=== PATIENT | female | born 1995 | race Caucasian/White ===

== ENCOUNTER 2016-06-17 | Outpatient (CLI) | END 2016-06-17 19:54 | disposition critical access hospital (66) | CPT/HCPCS: A0425; A0429 ==

== ENCOUNTER 2016-06-17 20:17 | Emergency (ER) | payer OTHER ==
[2016-06-18] MEDS ORDERED: ACETAMINOPHEN 500 MG TABLET PO STA (00:35)
[2016-06-18] MEDS ORDERED: ACETAMINOPHEN 500 MG TABLET PO ONE (00:51)
== END 2016-06-18 02:13 | disposition home or self-care (01) ==
DX: T43.222A Poisoning by selective serotonin reuptake inhibitors, intentional self-harm, initial encounter (principal); F32.9 Major depressive disorder, single episode, unspecified; F10.10 Alcohol abuse, uncomplicated; I48.92 Unspecified atrial flutter
CPT/HCPCS: 36415; 80053; 80306; 80307; 80320; 80329; 81001; 81025; 83690; 84443; 85025; 87086; 93005; 93010; 99284; A9270

== ENCOUNTER 2017-01-01 16:50 | Emergency (ER) | payer OTHER ==
[2017-01-01 18:22] VITALS: BP 140/92
== END 2017-01-01 18:19 | disposition left against medical advice (07) ==
LOC: ED 16:50
DX: F44.81 Dissociative identity disorder (principal); F32.9 Major depressive disorder, single episode, unspecified; Z53.21 Procedure and treatment not carried out due to patient leaving prior to being seen by health care provider
CPT/HCPCS: 99281

== ENCOUNTER 2017-01-14 22:50 | Outpatient (CLI) | payer OTHER | END 2017-01-14 22:51 | disposition critical access hospital (66) | LOC: EMS 22:50 | PROVIDERS: ATTEND Surgery | DX: R56.9 Unspecified convulsions (principal); R50.9 Fever, unspecified; E16.2 Hypoglycemia, unspecified | CPT/HCPCS: A0425; A0427 ==

== ENCOUNTER 2017-01-14 23:11 | Observation (INO) | payer OTHER ==
[2017-01-14] MEDS ORDERED: SODIUM CHLORIDE 0.9% 1,000 ML IV ONE (23:21)
[2017-01-14] MEDS ORDERED: DEXTROSE 50% ABBOJECT 25 GM/50 ML SYRINGE IVP STA (23:22)
[2017-01-14] MEDS ORDERED: DEXTROSE 5%-0.9% NACL 1,000 ML IV ONE (23:25)
[2017-01-14] MEDS ORDERED: DEXTROSE 50% ABBOJECT 25 GM/50 ML SYRINGE ONE (23:41)
[2017-01-14] MEDS ORDERED: SODIUM CHLORIDE FLUSH 0.9% 10 ML SYRINGE IVP ONE (23:41)
[2017-01-14 23:44] LABS: BILIRUBIN,URINE NEGATIVE (NEGATIVE)
[2017-01-14 23:45] LABS: BASOPHILS % (AUTO) 0.4 %; EOSINOPHILS % (AUTO) 0.3 %; HCT - HEMATOCRIT 34.1 % (37.0-47.0); HGB - HEMOGLOBIN 11.6 g/dL (12.0-16.0); LYMPHOCYTES # (AUTO) 1.5 10^3/uL (1.5-3.5); LYMPHOCYTES % (AUTO) 23.2 %; MEAN CORPUSCULAR HEMOGLOBIN 29.8 pg (27.0-31.0); MEAN CORPUSCULAR HGB CONC 34.1 g/dL (32.0-36.0); MEAN CORPUSCULAR VOLUME 87.6 fL (81.0-99.0); MEAN PLATELET VOLUME 8.2 fL (7.9-10.8); MONOCYTES # (AUTO) 0.5 10^3/uL (0.0-1.0); NEUTROPHILS # (AUTO) 4.3 10^3/uL (1.5-6.6); NEUTROPHILS % (AUTO) 68.1 %; RED BLOOD COUNT 3.89 10^6/uL (4.20-5.40); RED CELL DISTRIBUTION WIDTH 13.9 % (12.0-15.0); UNCORRECTED WHITE BLOOD COUNT 6.3 x10^3/uL; WHITE BLOOD COUNT 6.3 x10^3/uL (4.8-10.8)
[2017-01-14 23:47] LABS: HCG UR QUAL NEGATIVE; UA CHARGE (STRIP ONLY) YES; UR CULTURE IF IND NOT INDICATED
[2017-01-14 23:57] LABS: ALBUMIN/GLOBULIN RATIO 1.6 (1.0-2.2); BILIRUBIN,TOTAL 0.5 mg/dL (0.2-1.0); BUN - BLOOD UREA NITROGEN 11 mg/dL (6-20); CALCIUM 8.5 mg/dL (8.5-10.3); CARBON DIOXIDE - CO2 24 mmol/L (21-32); CHLORIDE 109 mmol/L (101-111); CREATININE 0.5 mg/dL (0.4-1.0); GFR - MDRD 157 (>89); GLUCOSE 67 mg/dL (70-100); LIPASE 20 U/L (22-51); POTASSIUM 3.6 mmol/L (3.5-5.0); SALICYLATE < 6.0 mg/dL; SODIUM 140 mmol/L (135-145); TOTAL PROTEIN 6.8 g/dL (6.7-8.2)
[2017-01-14 23:58] LABS: ACETAMINOPHEN < 10 ug/mL (10-30)
[2017-01-15] MEDS ORDERED: DEXTROSE 50% ABBOJECT 25 GM/50 ML SYRINGE IVP STA
[2017-01-15] MEDS ORDERED: CYPROHEPTADINE 4 MG TABLET PO STA (00:04)
[2017-01-15] MEDS ORDERED: diazePAM INJ 5 MG/ML SYRINGE IVP STA (00:10)
--- NOTE | 2017-01-15 00:10 | CT Preliminary Report ---
Exam: CT Head W/O IMPRESSION: No acute or focal intracranial abnormality. [facility] SITE ID: [id number]
--- NOTE | 2017-01-15 00:11 | ED Physician Documentation ---
PD HPI ALTERED MENTAL STATUS - Stated complaint Stated Complaint: SZ - Chief complaint Chief Complaint: Neuro - History obtained from History obtained from: Patient, Family (spouse), EMS - History of Present Illness Timing - onset: Today (just COURTESY CLERK, her says she seemed okay when he got home from work about 8 pm. He went to bed and was awakened by patient having rigid muscles and tremoring c/w seizure. No history of seizures. EMS called by and they found patient agitated, nonverbal/noninteractive, with blood sugar 43. Given amp D50 without improvement in mentation after FSBS improved. They noted slight temp elevation 37.9 or so, but was just after seizure.) Timing - duration: Hours (1) Timing - details: Abrupt onset Quality / character: Less responsive, Confused, Agitated Associated symptoms: Seizure activity. No: Fever, Headache, Cough, NVD Contributing factors: Recent med change (seen by psychiatrist a week ago and started on 2 new meds (had been on Prozac without improvement in depression). Stopped the Prozac and started Sertraline daily and Buspar bid. Has been taking them as directed, per .) Basline status: Alert and oriented X 3, Ambulatory Treatment COURTESY CLERK: Accucheck, D50 Similar symptoms before: Has not had sx before Recently seen: Clinic Review of Systems Unable to obtain: AMS, Other (info from , who is bedside and concerned appropriately.) Constitutional: denies: Fever, Chills Cardiac: denies: Chest pain / pressure Respiratory: denies: Cough, Wheezing GI: denies: Vomiting Skin: denies: Rash, Laceration (s) Neurologic: denies: Head injury Endocrine: denies: Weight loss PD PAST MEDICAL HISTORY - Past Medical History Cardiovascular: None Respiratory: None Neuro: None Endocrine/Autoimmune: None Psych: Depression, Anxiety, ADD/ADHD, Eating disorder - Past Surgical History Past Surgical History: Yes HEENT: Tonsil/Adenoidectomy - Present Medications Home Medications: Ambulatory Orders Medication Instructions Recorded Confirmed Sertraline [Zoloft] 50 mg PO DAILY 01/14/17 01/14/17 risperiDONE [RisperDAL] 0.5 mg PO BID 01/14/17 01/14/17 - Allergies Allergies/Adverse Reactions: Allergies Allergy/AdvReac Type Severity Reaction Status Date / Time No Known Drug Allergies Allergy Verified 06/17/16 20:26 - Social History Does the pt smoke?: No Smoking Status: Never smoker Does the pt drink ETOH?: Yes Does the pt have substance abuse?: No - Immunizations Immunizations are current?: Yes PD ED PE NORMAL - Vitals Vital signs reviewed: Yes - General General: Other (opens eyes to verbal/tactile but does not follow commands. Some element of rotary and variable nystagmus both eyes. Pupils slightly dilated but reactive. Fundi normal. She seems anxious, with some purposeful movements of arms and legs but not following direction. ) - HEENT HEENT: Atraumatic, Ears normal, Moist mucous membranes, Pharynx benign - Neck Neck: Supple, no meningeal sign, No adenopathy - Cardiac Cardiac: RRR, No murmur - Respiratory Respiratory: Clear bilaterally - Abdomen Abdomen: Soft, Non distended - Derm Derm: Normal color, Warm and dry - Extremities Extremities: No deformity, Normal ROM s pain, No edema - Neuro Neuro: No motor deficit Results - Vitals Vitals: Vital Signs - 24 hr 01/14/17 01/14/17 01/15/17 23:16 23:44 00:29 Temperature 37.1 C Heart Rate 126 H 123 H 125 H Respiratory 18 20 18 Rate Blood Pressure 145/87 H 145/77 H 137/79 H O2 Saturation 99 98 99 Oxygen O2 Source Room air - Labs Labs: Laboratory Tests 01/14/17 01/14/17 01/14/17 23:27 23:27 23:27 WBC RBC Hgb Hct MCV MCH MCHC RDW Plt Count MPV Neut # Lymph # Jasper # Eos # Baso # Absolute Nucleated RBC Nucleated RBCs Sodium Potassium Chloride Carbon Dioxide Anion Gap BUN Creatinine Estimated GFR (MDRD) Glucose Lactic Acid Calcium Magnesium Total Bilirubin AST ALT Alkaline Phosphatase Total Protein Albumin Globulin Albumin/Globulin Ratio Lipase Urine Color LT. YELLOW Urine Clarity CLEAR Urine pH 6.0 Ur Specific [place] >=1.030 H >=1.030 H Urine Protein NEGATIVE Urine Glucose (UA) 250 H Urine Ketones NEGATIVE Urine Occult Blood NEGATIVE Urine Nitrite NEGATIVE Urine Bilirubin NEGATIVE Urine Urobilinogen 0.2 (NORMAL) Ur Leukocyte Esterase NEGATIVE Ur Microscopic Review NOT INDICATED Urine Culture Comments NOT INDICATED Urine HCG, Qual NEGATIVE Salicylates Urine Opiates Screen POSITIVE H Ur Oxycodone Screen NEGATIVE Urine Methadone Screen NEGATIVE Ur Propoxyphene Screen NEGATIVE Acetaminophen Ur Barbiturates Screen NEGATIVE Ur Tricyclics Screen NEGATIVE Ur Phencyclidine Scrn NEGATIVE Ur Amphetamine Screen NEGATIVE U Methamphetamines Scrn NEGATIVE U Benzodiazepines Scrn NEGATIVE Urine Cocaine Screen NEGATIVE U Cannabinoids Screen NEGATIVE Ethyl Alcohol 01/14/17 01/14/17 01/14/17 23:33 23:33 23:33 WBC 6.3 RBC 3.89 L Hgb 11.6 L Hct 34.1 L MCV 87.6 MCH 29.8 MCHC 34.1 RDW 13.9 Plt Count 187 MPV 8.2 Neut # 4.3 Lymph # 1.5 Jasper # 0.5 Eos # 0.0 Baso # 0.0 Absolute Nucleated RBC 0.00 Nucleated RBCs 0.0 Sodium 140 Potassium 3.6 Chloride 109 Carbon Dioxide 24 Anion Gap 7.0 BUN 11 Creatinine 0.5 Estimated GFR (MDRD) 157 Glucose 67 L Lactic Acid 1.0 Calcium 8.5 Magnesium 2.0 Total Bilirubin 0.5 AST 17 ALT < 10 L Alkaline Phosphatase 53 Total Protein 6.8 Albumin 4.2 Globulin 2.6 Albumin/Globulin Ratio 1.6 Lipase 20 L Urine Color Urine Clarity Urine pH Ur Specific [place] Urine Protein Urine Glucose (UA) Urine Ketones Urine Occult Blood Urine Nitrite Urine Bilirubin Urine Urobilinogen Ur Leukocyte Esterase Ur Microscopic Review Urine Culture Comments Urine HCG, Qual Salicylates < 6.0 Urine Opiates Screen Ur Oxycodone Screen Urine Methadone Screen Ur Propoxyphene Screen Acetaminophen < 10 L Ur Barbiturates Screen Ur Tricyclics Screen Ur Phencyclidine Scrn Ur Amphetamine Screen U Methamphetamines Scrn U Benzodiazepines Scrn Urine Cocaine Screen U Cannabinoids Screen Ethyl Alcohol < 5.0 01/14/17 23:33 WBC RBC Hgb Hct MCV MCH MCHC RDW Plt Count MPV Neut # Lymph # Jasper # Eos # Baso # Absolute Nucleated RBC Nucleated RBCs Sodium Potassium Chloride Carbon Dioxide Anion Gap BUN Creatinine Estimated GFR (MDRD) Glucose Lactic Acid Calcium Magnesium Total Bilirubin AST ALT Alkaline Phosphatase Total Protein Albumin Globulin Albumin/Globulin Ratio Lipase Urine Color Urine Clarity Urine pH Ur Specific [place] Urine Protein Urine Glucose (UA) Urine Ketones Urine Occult Blood Urine Nitrite Urine Bilirubin Urine Urobilinogen Ur Leukocyte Esterase Ur Microscopic Review Urine Culture Comments Urine HCG, Qual Salicylates Urine Opiates Screen Ur Oxycodone Screen Urine Methadone Screen Ur Propoxyphene Screen Acetaminophen Ur Barbiturates Screen Ur Tricyclics Screen Ur Phencyclidine Scrn Ur Amphetamine Screen U Methamphetamines Scrn U Benzodiazepines Scrn Urine Cocaine Screen U Cannabinoids Screen Ethyl Alcohol < 5.0 - Rads (name of study) head CT Radiology: Prelim report reviewed, EMP read contemporaneously (no acute process seen) PD MEDICAL DECISION MAKING - ED course Complexity details: reviewed results, re-evaluated patient, considered differential (Had felt okay earlier in the day without URI/infectious symptoms. No recent injury. No alcohol use today per . Had been taking 2 new meds in the past week Rx by Psychiatrist. Pill count is appropriate in the bottles, so no overdose. Her symptoms and findings are c/w serotonin syndrome/ side effects more to Sertraline (with the seizure and low blood sugar). 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
--- NOTE | 2017-01-15 00:13 | CT Report ---
EXAM: CT HEAD EXAM DATE: 01/15/2017 12:04 AM. CLINICAL HISTORY: Seizure and altered mental status. COMPARISON: None. TECHNIQUE: Multiaxial CT images were obtained from the foramen magnum to the vertex. IV contrast: Non e. Reformats: Coronal. In accordance with CT protocol optimization, one or more of the following dose reduction techniques w ere utilized for this exam: automated exposure control, adjustment of mA and/or KV based on patient s ize, or use of iterative reconstructive technique. FINDINGS: Parenchyma: No intraparenchymal hemorrhage. No evidence of mass, midline shift, or CT findings of inf arction. Wall-white differentiation is distinct. Extraaxial Spaces: Normal for age. No subdural or epidural collections identified. Ventricles: Normal in size and position. Sinuses: Imaged paranasal sinuses, orbits, and mastoids show no significant abnormality. Bones: No evidence of fracture or calvarial defect. Other: None. IMPRESSION: No acute or focal intracranial abnormality. [facility] Referring Provider Line: [phone] SITE ID: [id number]
[2017-01-15] MEDS ORDERED: diazePAM INJ 5 MG/ML SYRINGE ONE (00:27)
[2017-01-15] MEDS ORDERED: SODIUM CHLORIDE FLUSH 0.9% 10 ML SYRINGE IVP PRN (01:22)
[2017-01-15] MEDS ORDERED: diazePAM INJ 5 MG/ML SYRINGE IVP PRN (01:26)
[2017-01-15] MEDS ORDERED: DEXTROSE GEL 37.5 GM TUBE PO SCH ×2 (01:40)
[2017-01-15] MEDS ORDERED: DEXTROSE 5% 1,000 ML IV SCH (02:00)
[2017-01-15] MEDS ORDERED: DEXTROSE 5%-0.9% NACL 1,000 ML IV SCH (02:00)
--- NOTE | 2017-01-15 02:01 | HISTORY & PHYSICAL EXAMINATION ---
Chief Complaint - Chief Complaint Chief Complaint: altered mental status History of Present Illness - Admitted From Admitted From:: ER - History Obtained From Records Reviewed: yes History obtained from: patient, spouse Exam Limitations: altered mental status - History of Present Illness HPI Comment/Other: 21yoF with h/p anxiety, depression, bulimia and anemia. Pt's reports she was in her normal state of health when he went to bed last evening around 9: 30pm 01/14 and pt had stayed awake. woke up about an hour later and found pt rigid with some muscle twitches, not responding to commands or questions. Called EMS. Upon arrival, BS was 40 and given dextrose, with increase to 200. In ER glc down to 80. She has been tachycardic and hypertensive, Temp 100.5. Slowly she has improved her mental status such that she now will answer questions, but has no recollection of events, easily distracted, requires constant redirection, slow/lethargic responses. She denies pain, VIRAMONTES, fever, CP, palpitations, no abd pain, no n/v, no d/c, no rashes/itching. reports pt had previously been on prozac, with intentional overdose several months ago. More recently was on wellbutrin and another antidepressant, but stopped taking due to lack of effect. She was off all medications for 2 week washout period before starting new regimen. She started Risperdol Th night and Sertraline with risperdol on Sun morning. Pt is bulimic with recent good control. However, she was told that SSRIs can cause weight gain and started intentionally throwing up Sun and Sat. Per they discussed it and she had not thrown up all day Sunday. Otherwise no other medication changes , no recent illnesses, no new exposures Review of Systems - Constitutional Constitutional: reports: Fever - Eyes Eyes: denies: Blurred vision, Dipolpia - Cardiovascular Cariovascular: denies: Irregular heart rate, Palpitations, Chest pain, Lightheadedness, Syncope - Respiratory Respiratory: denies: Cough - Gastrointestinal Gastrointestinal: reports: Vomiting (intentional). denies: Abdominal pain, Constipation, Diarrhea, Nausea - Genitourinary Genitourinary: denies: Dysuria, Hematuria - Neurological Neurological: reports: General weakness, Seizures (possible), Incoordination, Slurred speech, Other (stiffness, muscle twitching) - Psychiatric Psychiatric: reports: Anxiety - Hematologic/Lymphatic Hematologic/Lymphatic: reports: Anemia (chronic) - All Other Systems All Other Systems: reports: Reviewed and negative History - Past Medical History Cardiovascular: reports: None Respiratory: reports: None Neuro: reports: None Endocrine/Autoimmune: reports: None Psych: reports: Depression, Anxiety, ADD/ADHD, Eating disorder (bluimia) MRSA Hx?: No - Past Surgical History HEENT: reports: Tonsil/Adenoidectomy - Family & Social History Family History Comment/Other: Grandmother with DM. Pt with AMS unable to give further history Living arrangement: At home Living Situation: With spouse/s.o. Social History Notes: works at [employer]. no tobacco, prior EtOH,none currently, no recreational drug use Meds/Allgy - Home Medications Home Medications: Ambulatory Orders Medication Instructions Recorded Confirmed Sertraline [Zoloft] 50 mg PO DAILY 01/14/17 01/14/17 risperiDONE [RisperDAL] 0.5 mg PO BID 01/14/17 01/14/17 - Allergies Allergies/Adverse Reactions: Allergies Allergy/AdvReac Type Severity Reaction Status Date / Time No Known Drug Allergies Allergy Verified 06/17/16 20:26 Exam - Vital Signs Reviewed Vital Signs: Yes Vital Signs: Vital Signs x48h Temp Pulse Resp BP Pulse Ox 01/15/17 01:23 119 H 18 148/95 H 99 01/15/17 00:29 125 H 18 137/79 H 99 01/14/17 23:44 123 H 20 145/77 H 98 01/14/17 23:16 37.1 C 126 H 18 145/87 H 99 - Physical Exam General Appearance: positive: No acute distress Eyes Bilateral: positive: PERRL, EOMI ENT: positive: Pharynx nml, Dry mucous membranes, Other (mild nystagmus). negative: Oral lesions Neck: positive: Thyroid nml. negative: Thyromegaly, Lymphadenopathy (R), Lymphadenopathy (L), Stiff neck Respiratory: positive: Chest non-tender, No respiratory distress, Breath sounds nml. negative: Wheezes, Rales, Rhonchi Cardiovascular: positive: No murmur, No gallop, Tachycardia Peripheral Pulses: positive: 2+ Abdomen: positive: Non-tender, No distention. negative: Guarding, Rebound, Hepatomegaly Back: negative: CVA tenderness (R), CVA tenderness (L) Skin: positive: Color nml, No rash, Warm, Dry Extremities: positive: Non-tender, No pedal edema Neurologic/Psychiatric: positive: Disoriented to place, Disoriented to time, Depressed mood/affect Reflexes: Bicep (R): 1+, Bicep (L): 1+, Knee (R): 2+, Knee (L): 1+, Ankle (R): 4 + (2-3 beats), Ankle (L): 4+ (2-3 beats) Babinski Reflex: Right: Absent, Left: Absent Conclusion/Plan - Lab Results Lab results reviewed: Yes Fish Bones: 01/14/17 23:33 01/14/17 23:33 - Diagnostic Imaging Results Diagnostic Imaging Results: positive: Final report reviewed Diagnostic Imaging Results Comments: Head CT no acute findings - Other Other Results/Comments: lactate 1.0 lipase 20 B-HCG (-) EtOH (-) UDS - opiates UA - 250 glc Issues/Core Measures - Anticipated LOS Anticipated Stay Length: Less than 2 midnights - Issues Hospital Issues and Management Plan: 1. Altered mental status with hypoglycemia, tachycardia, hypertension, fever, possible seizure vs muscle rigidity Most likely related to seratonin syndrome give totality of situation and recent change in medications. - stop all medications - IVF - propanolol for hypertension an dtachycardia - no APAP, conservative cooling measures if recurrent fever - Benzos for anxiety/agitation - monitor closely for further seizure like activity 2. anxiety/depression/bulimia - benzos for anxiety 3. hypoglycemia - D5NS until BS normalize - hypoglycemia protocol - check A1c 4. Anemia - chronic, appears at baseline 5. DVT prophy - heparin 6. Dispo - likely home when vital signs and mental status normalize - anticipate hospital LOS <96hs - DVT/VTE - Prophylaxis VTE/DVT Device ordered at admit?: Yes
[2017-01-15 02:25] LABS: HEMOGLOBIN A1C 0.39 g/dL
[2017-01-15] MEDS: PROPRANOLOL 10 MG TABLET PO SCH ×2 (03:25→09:46)
[2017-01-15] MEDS: SODIUM CHLORIDE FLUSH 0.9% 10 ML SYRINGE IVP SCH ×2 (07:59→14:04)
[2017-01-15] MEDS ORDERED: POLYETHYLENE GLYCOL 3350 17 GM PACKET PO SCH (09:00)
[2017-01-15] MEDS ORDERED: HEPARIN 5,000 UNIT/ML VIAL SUBQ SCH (09:00)
--- NOTE | 2017-01-15 18:14 | Discharge Plan ---
Discharge Plan Disposition: 01 Home, Self Care Condition: Good Diet: Regular Activity Restrictions: No Restrictions Shower Restrictions: No Driving Restrictions: No Weight Bearing: Full Weight Additional Instructions or Follow Up instructions: Get further recommendations from your Telepsych provider. A copy of the Discharge Summary will be sent to [facility]. No Smoking: If you smoke, Please STOP! Call for help.
[2017-01-15 18:50] VITALS: BP 118/74
--- NOTE | 2017-01-16 09:18 | DISCHARGE SUMMARY ---
DATE OF ADMISSION: 01/15/2017 DATE OF DISCHARGE: 01/15/2017 CHIEF COMPLAINT: Altered mental status, admitted from the ER. This is a 21-year-old white female with a history of anxiety, depression, bulimia, and anemia. This p atient presented to the emergency room by EMS. The gave the history and said that she had pre viously been on Prozac with an intentional overdose several months ago. More recently, she was on Wel lbutrin and another antidepressant but stopped taking these due to lack of effect, and she was off al l medications for 2 weeks. She started Risperdal on night and sertraline with Risperdal on morning. She started intentionally throwing up on Sunday and Sunday because of concern of nel ght gain on these medications. On Sunday, however, she did not throw up. The then reported th at she was in her normal state of health when he went to bed on Sunday at 9:30 p.m., January 14, 2017, and the patient was still awake. The woke up about an hour later and found the patient rigid with some muscle twitches, not responding to commands or questions. He called EMS. Upon EMS arrival, the blood sugar was 40 and she was given dextrose with an increase of her blood glucose to 200 and th en in the emergency room down to 80. She was also tachycardiac and hypertensive on presentation, as w ell as having a fever of 100.5. Slowly she was improved as far as mental status and was then able to answer questions and had no recollection of the entire event. She was easily distracted. She required constant redirection and she was slow and lethargic with responses. There were no complaints of pain , fever, palpitations, diarrhea, nausea, vomiting, rash or itching. PAST SURGERIES: Only tonsillectomy and adenoidectomy. FAMILY HISTORY: Positive for grandmother with diabetes. SOCIAL HISTORY: Patient works at a [employer] store. Does not use tobacco products. Uses no alcohol at al l. No recreational drugs. MEDICATIONS AT HOME 1. Sertraline 50 mg p.o. daily. 2. Risperdal 0.5 mg p.o. b.i.d. ALLERGIES: NO KNOWN ALLERGIES. INITIAL VITAL SIGNS: Pulse 119 and sinus tachycardia, blood pressure 148/95. Temperature was 37.1 C. LABORATORY: Showed a hemoglobin of 11.6. Normal platelet count and white count. Normal electrolytes. Lactic acid level 1.0. Beta hCG negative. Alcohol level negative. Opiates were positive in the toxico logy screen; however, apparently there was some opioid use prescribed to her in the emergency room, a ccording to the sign-out. HOSPITAL COURSE: The patient had admission for observation. The working diagnosis was possible seizur e versus muscle rigidity from serotonin syndrome. She was given IV fluids. Propranolol was used for h ypertension and tachycardia. She required no benzodiazepines for anxiety or agitation. She was able t o take full regular solid diet and had no complaints. The hemoglobin was chronic and appeared to be a t her baseline. She was given heparin subcutaneously as DVT prophylaxis. I contacted [facility] on-call center team leader to obtain any further recommendations. I spoke to Dr. Kay Galindo, he stated that no further workup was needed and that she could be discharged but not to u se serotonin. I advised the patient and her that she needed followup for further management w ith her psychiatric provider. The main provider was Dr. Dennison at [facility] (tele psych). The patient was discharged in good condition. Approximately 60 minutes was required for discharge inc luding review of records, consultation with Neurology at an outlying hospital, and reexamination of t he patient and recommendations to the patient and . JOB #: [id number] EXT JOB #:[id number]
== END 2017-01-15 19:10 | disposition home or self-care (01) ==
LOC: EDUNIT# → ED 23:11 → OBS 01-15 01:23
PROVIDERS: ADMIT Internal Medicine; ATTEND Internal Medicine
DX: R41.82 Altered mental status, unspecified (principal); E16.2 Hypoglycemia, unspecified; R00.0 Tachycardia, unspecified; I10 Essential (primary) hypertension; R50.9 Fever, unspecified; R25.3 Fasciculation; F32.9 Major depressive disorder, single episode, unspecified; F41.9 Anxiety disorder, unspecified; F90.9 Attention-deficit hyperactivity disorder, unspecified type; F50.2 Bulimia nervosa; D64.9 Anemia, unspecified; Z91.5 Personal history of self-harm
CPT/HCPCS: 36415; 51702; 70450; 80053; 80306; 80307; 80320; 80329; 81003; 81025; 83036; 83605; 83690; 83735; 85025; 96361; 96374; 99285; A9270; G0378; 81001; 87086; 99284

== ENCOUNTER 2017-01-17 22:31 | Emergency (ER) | payer OTHER ==
[2017-01-17 23:03] LABS: BASOPHILS % (AUTO) 0.2 %; EOSINOPHILS % (AUTO) 0.3 %; HCT - HEMATOCRIT 39.2 % (37.0-47.0); HGB - HEMOGLOBIN 13.3 g/dL (12.0-16.0); LYMPHOCYTES # (AUTO) 2.4 10^3/uL (1.5-3.5); LYMPHOCYTES % (AUTO) 26.4 %; MEAN CORPUSCULAR HGB CONC 34.1 g/dL (32.0-36.0); MEAN CORPUSCULAR VOLUME 88.1 fL (81.0-99.0); MEAN PLATELET VOLUME 8.5 fL (7.9-10.8); MONOCYTES # (AUTO) 0.6 10^3/uL (0.0-1.0); MONOCYTES % (AUTO) 7.2 %; NEUTROPHILS # (AUTO) 5.9 10^3/uL (1.5-6.6); NEUTROPHILS % (AUTO) 65.9 %; RED BLOOD COUNT 4.45 10^6/uL (4.20-5.40); RED CELL DISTRIBUTION WIDTH 13.8 % (12.0-15.0)
[2017-01-17 23:12] LABS: ALBUMIN/GLOBULIN RATIO 1.5 (1.0-2.2); BILIRUBIN,TOTAL 0.4 mg/dL (0.2-1.0); BUN - BLOOD UREA NITROGEN 13 mg/dL (6-20); CALCIUM 9.8 mg/dL (8.5-10.3); CARBON DIOXIDE - CO2 27 mmol/L (21-32); CHLORIDE 106 mmol/L (101-111); CREATININE 0.7 mg/dL (0.4-1.0); GFR - MDRD 107 (>89); GLUCOSE 96 mg/dL (70-100); LIPASE 28 U/L (22-51); POTASSIUM 3.8 mmol/L (3.5-5.0); SALICYLATE < 6.0 mg/dL; SODIUM 142 mmol/L (135-145); TOTAL PROTEIN 7.9 g/dL (6.7-8.2)
[2017-01-17] MEDS ORDERED: LORazepam 0.5 MG TABLET PO STA (23:14)
[2017-01-17 23:16] LABS: ACETAMINOPHEN < 10 ug/mL (10-30)
[2017-01-17] MEDS ORDERED: LORazepam 0.5 MG TABLET ONE (23:24)
[2017-01-18 01:02] LABS: BILIRUBIN,URINE NEGATIVE (NEGATIVE); PH,URINE 6.5 PH (5.0-7.5)
[2017-01-18 01:04] LABS: HCG UR QUAL NEGATIVE; UA CHARGE (STRIP ONLY) YES; UR CULTURE IF IND NOT INDICATED
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
[2017-01-18] MEDS ORDERED: LORazepam 2 MG/ML SYRINGE ONE (03:25)
[2017-01-18] MEDS ORDERED: LORazepam 2 MG/ML SYRINGE IM STA (03:55)
--- NOTE | 2017-01-18 05:42 | ED Physician Documentation ---
PD HPI MHE - Stated complaint Stated Complaint: SI - Chief complaint Chief Complaint: MHE - History obtained from History obtained from: Patient, Family - History of Present Illness Primary symptom: Suicidal ideation, Depression, Anxiety Timing - onset: Chronic Contributing factors: Off meds Similar symptoms before: Work up / diagnostics, Treatment Recently seen: Emergency Dept, Admitted - Additional information Additional information: Patient is a 21 year old female with a history of anxiety and depression who is presenting to the emergency department for a panic attack and thoughts of suicide. patient recently had a seizure and was told it was secondary to her medications so she stopped taking her medications. Patient today got uncontrollably anxious and couldn't control her crying. patient states that she couldn't do it any more so she was brought in by her for evaluation. Review of Systems Unable to obtain: Uncooperative PD PAST MEDICAL HISTORY - Past Medical History Past Medical History: Yes Cardiovascular: None Respiratory: None Neuro: None Endocrine/Autoimmune: None GI: None : None HEENT: None Psych: Depression, Anxiety, ADD/ADHD, Post traumatic stress disorder, Eating disorder, Other Musculoskeletal: None Other Past Medical History: Boarderline personality - Past Surgical History Past Surgical History: Yes HEENT: Tonsil/Adenoidectomy - Present Medications Home Medications: Ambulatory Orders Medication Instructions Recorded Confirmed No Known Home Medications [No 01/17/17 01/17/17 Known Home Medications] - Allergies Allergies/Adverse Reactions: Allergies Allergy/AdvReac Type Severity Reaction Status Date / Time No Known Drug Allergies Allergy Verified 01/17/17 22:42 - Social History Does the pt smoke?: No Smoking Status: Never smoker Does the pt drink ETOH?: Yes Does the pt have substance abuse?: No Substance Use and Type: Marijuana (no use in 5 years), Prescription Pills (no use in 5 years) - Immunizations Immunizations are current?: Yes - POLST Patient has POLST: No PD ED PE NORMAL - Vitals Vital signs reviewed: Yes - General General: Alert and oriented X 3 - HEENT HEENT: PERRL, Moist mucous membranes - Neck Neck: Supple, no meningeal sign - Respiratory Respiratory: No respiratory distress - Abdomen Abdomen: Non distended - Derm Derm: No rash - Extremities Extremities: No deformity, No edema - Neuro Neuro: No sensory deficit PD ED PE EXPANDED - General General: Anxious - Psych Psych: Depressed, Suicidal, Tearful, Poor eye contact Results - Vitals Vitals: Vital Signs - 24 hr 01/17/17 01/18/17 22:37 03:56 Temperature 36.8 C 36.6 C Heart Rate 96 75 Respiratory 16 22 Rate Blood Pressure 128/85 H 116/67 O2 Saturation 99 98 Oxygen O2 Source Room air - Labs Labs: Laboratory Tests 01/17/17 01/17/17 01/17/17 22:45 22:45 22:45 WBC 9.0 RBC 4.45 Hgb 13.3 Hct 39.2 MCV 88.1 MCH 30.0 MCHC 34.1 RDW 13.8 Plt Count 239 MPV 8.5 Neut # 5.9 Lymph # 2.4 [place] # 0.6 Eos # 0.0 Baso # 0.0 Absolute Nucleated RBC 0.00 Nucleated RBCs 0.0 Sodium 142 Potassium 3.8 Chloride 106 Carbon Dioxide 27 Anion Gap 9.0 BUN 13 Creatinine 0.7 Estimated GFR (MDRD) 107 Glucose 96 Calcium 9.8 Total Bilirubin 0.4 AST 17 ALT 10 Alkaline Phosphatase 65 Total Protein 7.9 Albumin 4.8 Globulin 3.1 Albumin/Globulin Ratio 1.5 Lipase 28 TSH 2.79 Urine Color Urine Clarity Urine pH Ur Specific [place] Urine Protein Urine Glucose (UA) Urine Ketones Urine Occult Blood Urine Nitrite Urine Bilirubin Urine Urobilinogen Ur Leukocyte Esterase Ur Microscopic Review Urine Culture Comments Urine HCG, Qual Salicylates < 6.0 Urine Opiates Screen Ur Oxycodone Screen Urine Methadone Screen Ur Propoxyphene Screen Acetaminophen < 10 L Ur Barbiturates Screen Ur Tricyclics Screen Ur Phencyclidine Scrn Ur Amphetamine Screen U Methamphetamines Scrn U Benzodiazepines Scrn Urine Cocaine Screen U Cannabinoids Screen Ethyl Alcohol < 5.0 01/18/17 01/18/17 00:30 00:30 WBC RBC Hgb Hct MCV MCH MCHC RDW Plt Count MPV Neut # Lymph # [place] # Eos # Baso # Absolute Nucleated RBC Nucleated RBCs Sodium Potassium Chloride Carbon Dioxide Anion Gap BUN Creatinine Estimated GFR (MDRD) Glucose Calcium Total Bilirubin AST ALT Alkaline Phosphatase Total Protein Albumin Globulin Albumin/Globulin Ratio Lipase TSH Urine Color YELLOW Urine Clarity CLEAR Urine pH 6.5 Ur Specific [place] <=1.005 Urine Protein NEGATIVE Urine Glucose (UA) NEGATIVE Urine Ketones NEGATIVE Urine Occult Blood NEGATIVE Urine Nitrite NEGATIVE Urine Bilirubin NEGATIVE Urine Urobilinogen 0.2 (NORMAL) Ur Leukocyte Esterase NEGATIVE Ur Microscopic Review NOT INDICATED Urine Culture Comments NOT INDICATED Urine HCG, Qual NEGATIVE Salicylates Urine Opiates Screen NEGATIVE Ur Oxycodone Screen NEGATIVE Urine Methadone Screen NEGATIVE Ur Propoxyphene Screen NEGATIVE Acetaminophen Ur Barbiturates Screen NEGATIVE Ur Tricyclics Screen NEGATIVE Ur Phencyclidine Scrn NEGATIVE Ur Amphetamine Screen NEGATIVE U Methamphetamines Scrn NEGATIVE U Benzodiazepines Scrn POSITIVE H Urine Cocaine Screen NEGATIVE U Cannabinoids Screen NEGATIVE Ethyl Alcohol PD MEDICAL DECISION MAKING - ED course Complexity details: reviewed old records, reviewed results, re-evaluated patient , considered differential, d/w patient, d/w family, d/w edi consultant ED course: Patient was seen and examined at bedside. labs were drawn. Patient was anxious and crying and was treated with 1mg of ativan. Urine was collected. when patient's diagnostics came back patient was medically cleared for psych evaluation and tele psych was consulted. patient was evaluated and the recommendation was inpatient care. patient wanted to go home so [facility] was contacted to come evaluate the patient for involuntary care. After evaluation by the [facility], the dmhp stated that the patient did not meet the requirements for inpatient care. A lengthy discussion was had with the patient and the family. They had a follow up phone call with the patient's primary therapist and the was going to stay home with his over the next three days. While I felt the patient would benefit from inpatient care I did not have grounds for keeping the patient. Patient was discharged home with close follow up and explicit return instructions. Departure - Departure Disposition: 01 Home, Self Care Clinical Impression: Depression Qualifiers: Depression Type: major depressive disorder Major depression recurrence: recurrent Active/Remission status: currently active Major depression episode severity: severe Psychotic features: without psychotic features Qualified Code(s ): F33.2 - Major depressive disorder, recurrent severe without psychotic features Condition: Stable Instructions: ED Depression, ED Stress React Follow-Up: primary, therapist [Other] (follow up with your therapist today) Comments: It is very important that you follow up with your therapist today. If you are unable to meet up with your therapist or you have any other thoughts of hurting yourself or uncontrollable anxiety you should return to the emergency department. I still believe that you would benefit from inpatient care. I would work with your doctor in developing a [facility] sustainable plan. Forms: Activity restrictions
[2017-01-18 05:55] VITALS: BP 125/75
== END 2017-01-18 05:54 | disposition home or self-care (01) ==
LOC: ED 22:31
DX: F33.2 Major depressive disorder, recurrent severe without psychotic features (principal); R45.851 Suicidal ideations; F41.9 Anxiety disorder, unspecified
CPT/HCPCS: 36415; 80053; 80306; 80307; 80320; 80329; 81003; 81025; 83690; 84443; 85025; 96372; 99283; 99284; A9270; J2060; 81001; 87086

== ENCOUNTER 2017-01-26 14:59 | Outpatient (CLI) | payer OTHER | END 2017-01-26 15:00 | disposition critical access hospital (66) | LOC: EMS 14:59 | PROVIDERS: ATTEND Surgery | DX: R46.4 Slowness and poor responsiveness (principal) | CPT/HCPCS: A0425; A0427 ==

== ENCOUNTER 2017-01-26 15:19 | Emergency (ER) | payer OTHER ==
[2017-01-26] MEDS ORDERED: SODIUM CHLORIDE 0.9% 1,000 ML IV ONE (15:38)
[2017-01-26 15:58] LABS: BASOPHILS % (AUTO) 0.3 %; EOSINOPHILS % (AUTO) 0.2 %; HCT - HEMATOCRIT 37.8 % (37.0-47.0); HGB - HEMOGLOBIN 13.2 g/dL (12.0-16.0); LYMPHOCYTES # (AUTO) 1.3 10^3/uL (1.5-3.5); LYMPHOCYTES % (AUTO) 17.2 %; MEAN CORPUSCULAR HEMOGLOBIN 30.8 pg (27.0-31.0); MEAN CORPUSCULAR HGB CONC 35.1 g/dL (32.0-36.0); MEAN CORPUSCULAR VOLUME 87.8 fL (81.0-99.0); MEAN PLATELET VOLUME 8.4 fL (7.9-10.8); MONOCYTES # (AUTO) 0.5 10^3/uL (0.0-1.0); MONOCYTES % (AUTO) 6.3 %; NEUTROPHILS # (AUTO) 5.9 10^3/uL (1.5-6.6); RED CELL DISTRIBUTION WIDTH 13.6 % (12.0-15.0); UNCORRECTED WHITE BLOOD COUNT 7.8 x10^3/uL; WHITE BLOOD COUNT 7.8 x10^3/uL (4.8-10.8)
--- NOTE | 2017-01-26 16:05 | ED Physician Documentation ---
PD HPI ALTERED MENTAL STATUS - Stated complaint Stated Complaint: ALOC - Chief complaint Chief Complaint: General - History obtained from History obtained from: Patient, EMS - History of Present Illness Timing - onset: Unknown Timing - details: Abrupt onset Quality / character: Less responsive (she was found walking ataxically on street then sat down, was poorly responsive and just blank staring. EMS called. They found several boxes of cold meds with dextromethorphan empty in her purse. She was near drugstore, so presumed recent purchase and ingestion.), Confused Associated symptoms: No: Fever, Dyspnea Contributing factors: Known psych illness (has been to ED for depression in the past.). No: Diabetic Basline status: Alert and oriented X 3, Ambulatory Treatment PRINCIPAL TECHNICAL ARCHITECT: Accucheck Similar symptoms before: Has not had sx before Review of Systems Unable to obtain: [facility] PD PAST MEDICAL HISTORY - Past Medical History Cardiovascular: None Respiratory: None Neuro: None Endocrine/Autoimmune: None GI: None : None HEENT: None Psych: Depression, Anxiety, ADD/ADHD, Post traumatic stress disorder, Eating disorder, Other Musculoskeletal: None - Past Surgical History Past Surgical History: Yes HEENT: Tonsil/Adenoidectomy - Present Medications Home Medications: Ambulatory Orders Medication Instructions Recorded Confirmed No Known Home Medications [No 01/17/17 01/17/17 Known Home Medications] - Allergies Allergies/Adverse Reactions: Allergies Allergy/AdvReac Type Severity Reaction Status Date / Time No Known Drug Allergies Allergy Verified 01/17/17 22:42 - Social History Does the pt smoke?: No Smoking Status: Never smoker Does the pt drink ETOH?: Yes Does the pt have substance abuse?: No - Immunizations Immunizations are current?: Yes - POLST Patient has POLST: No PD ED PE NORMAL - Vitals Vital signs reviewed: Yes - General General: Well developed/nourished, Other (poorly interacting with able to just mumble her name when questioned. Can follow commands to squeeze my hands but is slow and weak. Mostly blank stare ahead.) - HEENT HEENT: PERRL, EOMI (notable rotary nystagmus c/w dex/medications likely.), Pharynx benign (good gag reflex) - Neck Neck: Supple, no meningeal sign, No adenopathy - Cardiac Cardiac: RRR, No murmur - Respiratory Respiratory: Clear bilaterally - Abdomen Abdomen: Soft, Non tender - Back Back: No CVA TTP - Derm Derm: Normal color, Warm and dry - Extremities Extremities: No tenderness to palpate, Normal ROM s pain - Neuro Neuro: No motor deficit, No sensory deficit Results - Vitals Vitals: Vital Signs - 24 hr 01/26/17 01/26/17 15:23 17:58 Temperature 37.2 C Heart Rate 124 H 102 H Respiratory 20 15 Rate Blood Pressure 137/89 H 115/75 O2 Saturation 100 98 Oxygen O2 Source Room air - Labs Labs: Laboratory Tests 01/26/17 01/26/17 01/26/17 15:51 15:51 15:51 WBC 7.8 RBC 4.30 Hgb 13.2 Hct 37.8 MCV 87.8 MCH 30.8 MCHC 35.1 RDW 13.6 Plt Count 236 MPV 8.4 Neut # 5.9 Lymph # 1.3 L Taylor # 0.5 Eos # 0.0 Baso # 0.0 Absolute Nucleated RBC 0.00 Nucleated RBCs 0.0 Sodium 140 Potassium 3.7 Chloride 108 Carbon Dioxide 24 Anion Gap 8.0 BUN 11 Creatinine 0.7 Estimated GFR (MDRD) 107 Glucose 82 Calcium 9.2 Total Bilirubin 0.6 AST 23 ALT 13 Alkaline Phosphatase 58 Total Protein 7.6 Albumin 4.8 Globulin 2.8 Albumin/Globulin Ratio 1.7 Lipase 22 TSH 1.60 Ur Specific [place] Urine HCG, Qual Salicylates < 6.0 Urine Opiates Screen Ur Oxycodone Screen Urine Methadone Screen Ur Propoxyphene Screen Acetaminophen < 10 L Ur Barbiturates Screen Ur Tricyclics Screen Ur Phencyclidine Scrn Ur Amphetamine Screen U Methamphetamines Scrn U Benzodiazepines Scrn Urine Cocaine Screen U Cannabinoids Screen Ethyl Alcohol < 5.0 01/26/17 01/26/17 16:45 16:45 WBC RBC Hgb Hct MCV MCH MCHC RDW Plt Count MPV Neut # Lymph # [place] # Eos # Baso # Absolute Nucleated RBC Nucleated RBCs Sodium Potassium Chloride Carbon Dioxide Anion Gap BUN Creatinine Estimated GFR (MDRD) Glucose Calcium Total Bilirubin AST ALT Alkaline Phosphatase Total Protein Albumin Globulin Albumin/Globulin Ratio Lipase TSH Ur Specific [place] <=1.005 Urine HCG, Qual NEGATIVE Salicylates Urine Opiates Screen POSITIVE H Ur Oxycodone Screen NEGATIVE Urine Methadone Screen NEGATIVE Ur Propoxyphene Screen NEGATIVE Acetaminophen Ur Barbiturates Screen NEGATIVE Ur Tricyclics Screen NEGATIVE Ur Phencyclidine Scrn NEGATIVE Ur Amphetamine Screen NEGATIVE U Methamphetamines Scrn NEGATIVE U Benzodiazepines Scrn NEGATIVE Urine Cocaine Screen NEGATIVE U Cannabinoids Screen NEGATIVE Ethyl Alcohol PD MEDICAL DECISION MAKING - ED course Complexity details: re-evaluated patient (improved over couple of hours. She is conversant, ambulatory, denies suicidal intent. Able to talk clearly and does not seem in psychosis.), considered differential (presume dextromethorphan overdose and will give time for it to clear. ), d/w patient, d/w family ( , who would like the patient "kept, to keep her from doing it again" however the patient is not suicidal, said she took the meds to "get out of her head" and has cleared well with time. She does not feel need for psych admission. No grounds for holding her.) Departure - Departure Disposition: 01 Home, Self Care Clinical Impression: Altered mental status Qualifiers: Altered mental status type: delirium Qualified Code(s): R41.0 - Disorientation , unspecified Dextromethorphan overdose Qualifiers: Encounter type: initial encounter Injury intent: undetermined intent Qualified Code(s): T48.3X4A - Poisoning by antitussives, undetermined, initial encounter Condition: Stable Record reviewed to determine appropriate education?: Yes Instructions: ED Overdose Intentional Comments: Drink lots of fluids this evening. Do not take excess medications and avoid alcohol. Follow-up with your primary care. Continue prescribed medications and normal doses. Discharge Date/Time: 01/26/17 18:31
[2017-01-26 16:12] LABS: ALBUMIN/GLOBULIN RATIO 1.7 (1.0-2.2); BILIRUBIN,TOTAL 0.6 mg/dL (0.2-1.0); BUN - BLOOD UREA NITROGEN 11 mg/dL (6-20); CALCIUM 9.2 mg/dL (8.5-10.3); CARBON DIOXIDE - CO2 24 mmol/L (21-32); CHLORIDE 108 mmol/L (101-111); CREATININE 0.7 mg/dL (0.4-1.0); GFR - MDRD 107 (>89); GLUCOSE 82 mg/dL (70-100); LIPASE 22 U/L (22-51); POTASSIUM 3.7 mmol/L (3.5-5.0); SALICYLATE < 6.0 mg/dL; SODIUM 140 mmol/L (135-145); TOTAL PROTEIN 7.6 g/dL (6.7-8.2)
[2017-01-26 16:56] LABS: ACETAMINOPHEN < 10 ug/mL (10-30)
[2017-01-26 17:17] LABS: HCG UR QUAL NEGATIVE
[2017-01-26 17:59] VITALS: BP 115/75
== END 2017-01-26 18:31 | disposition home or self-care (01) ==
LOC: EDUNIT# → ED 15:19
DX: R41.0 Disorientation, unspecified (principal); T48.3X4A Poisoning by antitussives, undetermined, initial encounter
CPT/HCPCS: 36415; 51701; 80053; 80306; 80307; 80320; 80329; 81025; 83690; 84443; 85025; 93005; 99284